=== PATIENT | female | born 1950 | race Caucasian/White ===

== ENCOUNTER 2021-04-23 07:50 | Observation (INO) ==
--- NOTE | 2021-03-25 13:41 | PAT Medication Instructions ---
Medication Instructions Date of Service March 25, 2021 Home Medications amlodipine [Norvasc] 10 mg PO PM aspirin [Aspir-81] 81 mg PO PM bupropion HCl [Wellbutrin XL] 300 mg PO PM celecoxib [Celebrex] 200 mg PO DAILY PRN ibuprofen 200 mg PO Q6H PRN magnesium 250 mg PO PM omeprazole 40 mg PO DAILY PRN rosuvastatin 40 mg PO 3XWK venlafaxine 75 mg PO PM Continue as directed rosuvastatin 40 mg PO 3XWK ASK your surgeon for instructions celecoxib [Celebrex] 200 mg PO DAILY PRN ibuprofen 200 mg PO Q6H PRN Take morning of surgery With a small sip of water, OTHERWISE NOTHING TO EAT OR DRINK AFTER MIDNIGHT: omeprazole 40 mg PO DAILY PRN (if needed) Take evening before surgery amlodipine [Norvasc] 10 mg PO PM aspirin [Aspir-81] 81 mg PO PM (continue as normal unless told otherwise by surgeon) bupropion HCl [Wellbutrin XL] 300 mg PO PM magnesium 250 mg PO PM omeprazole 40 mg PO DAILY PRN (if needed) venlafaxine 75 mg PO PM Other Notes If you have any questions please call us at [phone] or [phone] or [phone] or [phone]
--- NOTE | 2021-03-30 14:28 | Anesthesiology Consultation ---
Date of Service March 30, 2021 Assessment & Plan (1) Encounter for pre-operative examination: - COVID screening: Per assessment on 03/30: Travel screen- visited daughter in [place] (returned 03/28). No further travel planned prior to surgery. No known [place] VID-19 positive contacts or current COVID-19 related symptoms. Patient fully vaccinated. Surgeon arranging preop COVID testing. Awaiting results. - ASA instructions: to continue perioperatively unless told otherwise by surgeon/prescriber - PCP office visit (01/19/21): "Here for CPE.. No fever, chills, chest pain, shortness of breath, headache, nausea, vomit, diarrhea, constipation or vision changes." Continued on same regimen for chronic Chart Review Chart Review: Acceptable Risk for Surgery and Patient seen in Pre Admission Testing Teaching & Discussion Pre-Anesthesia Teaching/Discussion Notes: Instructed NPO after midnight before surgery,except medications with 15 cc of water. Medication instructions provided according to the PAT guidelines. History Surgery Operation Date: 04/23/21 07:00 Proposed Procedures p Left Total Knee Arthroplasty - Jesus Haji, Height/Weight Height: 5 ft 10 in Weight: 113.7 kg Allergies Allergy/AdvReac Type Severity Reaction Status Date / Time Sulfa (Sulfonamide Allergy Intermediate Mouth/throat Verified 03/29/21 15:59 Antibiotics) ulceration x weeks tetracycline Allergy Intermediate Mouth/throat Verified 03/29/21 15:59 ulceration topiramate Allergy Unknown Unknown Verified 03/29/21 15:59 phenobarbital AdvReac Mild Dizziness, Verified 03/29/21 15:59 nausea Medications Home Medications Medication Instructions Recorded Confirmed Last Taken amlodipine [Norvasc] 10 mg PO PM 03/18/21 03/18/21 Unknown aspirin [Aspir-81] 81 mg PO PM 03/18/21 03/18/21 Unknown bupropion HCl [Wellbutrin XL] 300 mg PO PM 03/18/21 03/18/21 Unknown celecoxib [Celebrex] 200 mg PO DAILY PRN 03/18/21 03/18/21 Unknown ibuprofen 200 mg PO Q6H PRN 03/18/21 03/18/21 Unknown magnesium 250 mg PO PM 03/18/21 03/18/21 Unknown omeprazole 40 mg PO DAILY PRN 03/18/21 03/18/21 Unknown rosuvastatin 40 mg PO 3XWK 03/18/21 03/18/21 Unknown venlafaxine 75 mg PO PM 03/18/21 03/18/21 Unknown Past Medical History Medical History Breast cancer 8 yrs ago s/p right lumpectomy, radiation Carotid artery disease HUSSAIN < 50% stenosis, LICA 50-69% stenosis per 07/2017 carotid duplex- was d/c'd by cardio d/t long-term stability in carotid disease per pt Depression GERD (gastroesophageal reflux disease) controlled Hyperlipidemia Hypertension Medication reaction Sensitive to medications > Per patient, "meds have to start at lower doses than average person" Migraine Obesity Osteoarthritis Sleep apnea No longer using CPAP since 87 lbs weight loss (no formal retesting but snoring/witnessed apnea events have resolved) Exercise / Class Metabolic Activity II 4-5 Yardwork/Stairs/Walk up hill (one flight of stairs (no chest pain, no sob)) Past Family History Family History Brother Diabetes Grandmother Colon cancer Past Surgical History Surgical History History of arthroscopy Right knee History of colonoscopy History of esophagogastroduodenoscopy (EGD) History of hysterectomy History of tonsillectomy History of tooth extraction History of total knee replacement Right Hx of lumpectomy Right Hx of oral surgery Gum [place] teeth extracted Past Anesthesia History No Family Hx of Anesthesia Complications and Other ("Fiesty" with anesthesia emergence) History of PONV No Hx of PONV and No Hx of Motion Sickness Social History Smoking Status: Former smoker Do You Dip or Chew Tobacco: No Smoking End Date: Quit 1987 Hx Alcohol Use: Yes Alcohol type: beer and wine alcohol intake frequency: a few times a week Hx Substance Use: No substance use type: does not use Review of Systems Patient denies chest pain, shortness of breath, dyspnea on exertion, fever, chills, cough, wheezing, palpitations. Physical Exam Vital Signs VITALS BP 130/79 P 57 TEMP SP02 97%RA RESP 16 PHYSICAL Full cervical extension range of motion. Full TMJ range of motion. TMD 4 finger breaths Mallampati Score 3 Dentition: missing molars, + implant (right upper side), several crowns Lungs: clear throughout to auscultation Cardiac: regular rate and rhythm, no murmurs noted Spine: normal Carotid arteries: negative bruit Extremities: no edema Testing Laboratory Results 03/30/21 14:52 03/30/21 14:52 PT 10.0 Seconds (9.0-12.0) 03/30/21 14:52 INR 1.0 (0.9-1.1) 03/30/21 14:52 APTT 24.2 Seconds (21.0-31.0) 03/30/21 14:52 Blood Type A Positive 03/30/21 14:52 Antibody Screen NEGATIVE 03/30/21 14:52 Electrocardiogram Date: 03/30/21 SB at 51bpm. Otherwise normal ECG. No significant change compared to 12/24/14 per supervisor net making review. Chest X-Ray Date: 03/30/21 Findings: + NAD Other Testing Carotid duplex (07/26/17): The right vertebral artery demonstrates antegrade flow. The left vertebral artery demonstrates antegrade flow. Right carotid art nelson duplex examination indicates evidence of a less than 50% stenosis of the internal carotid artery. Left carotid artery duplex examination indicates evidence of 50-69% stenosis of the internal carotid artery.
[2021-03-30 15:20] LABS: Basophils # (auto) 0.03 K/uL (0-0.2); Basophils % (auto) 0.5 %; Eosinophils # (auto) 0.08 K/uL (0-0.5); Eosinophils % (auto) 1.3 %; Hematocrit (blood only) 41.7 % (37-47); Hemoglobin 13.8 g/dL (12.0-16.0); Immature Granulocytes # (auto) 0.01 K/uL (0.00-0.02); Immature Granulocytes % (auto) 0.2 %; Mean Corpuscular Hemoglobin 31.7 pg (25-34); Mean Corpuscular Hgb Conc 33.1 g/dL (32-36); Mean Corpuscular Volume 95.6 fL (80-100); Mean Platelet Volume 9.8 fL (7.4-10.4); Monocytes # (auto) 0.48 K/uL (0.11-0.59); Monocytes % (auto) 7.9 %; Neutrophils # (auto) 3.31 K/uL (1.4-6.5); Neutrophils % (auto) 54.1 %; Platelet Count 339 K/uL (130-400); RDW Coefficient of Variation 13.9 % (11.5-14.5); RDW Standard Deviation 48.6 fL (36.4-46.3); Red Blood Count 4.36 M/uL (4.2-5.4); White Blood Count 6.11 K/uL (4.8-10.8)
[2021-03-30 15:30] LABS: BUN Creatinine Ratio 16.7 (10-20); Calcium 9.1 mg/dl (8.5-10.1); Est GFR (African American) 106.6
--- NOTE | 2021-03-30 15:31 | XRay Report ---
XR chest Pre-admission PA/Lat HISTORY: 70 years-old Female pat chronic degenerative joint disease COMPARISON: Chest and rib radiographs 03/13/2019 TECHNIQUE: PA and lateral views of the chest FINDINGS: Cardiomediastinal and hilar silhouettes are within normal limits. No pneumothorax, pleural effusion, airspace consolidation or overt pulmonary edema. Bones of the chest appear grossly intact. IMPRESSION: No acute process. ACT 112: Negative or not required by law. The above report was generated using voice recognition software. It may contain grammatical, syntax o r spelling errors. Electronically signed by: Keith Vogel M.D. 03/30/2021 3:30 PM
[2021-03-30 15:41] LABS: Partial Thromboplastin Ratio 0.9; Partial Thromboplastin Time 24.2 Seconds (21.0-31.0)
--- NOTE | 2021-03-31 22:01 | Electrocardiogram Report ---
Test Reason : Blood Pressure : / mmHG Vent. Rate : 051 BPM Atrial Rate : 051 BPM P-R Int : 176 ms QRS Dur : 100 ms QT Int : 430 ms P-R-T Axes : 074 063 074 degrees QTc Int : 396 ms Sinus bradycardia Otherwise normal ECG When compared with ECG of 24-DEC-2014 11:01, No significant change was found Confirmed by Ivan Luna ([id number]) on 03/31/2021 10:01:02 PM Referred By: Jesus Haji Confirmed By:Ivan Luna
--- NOTE | 2021-04-22 07:07 | History & Physical Report ---
Date of Service April 22, 2021 Assessment & Plan (1) Osteoarthritis of left knee: We will proceed with a left total knee arthroplasty. Postoperatively she will be started on aspirin for DVT prophylaxis and kept overnight in the hospital for postoperative medical management. She plans to use [facility] upon discharge. History of Present Illness Chief Complaint: Osteoarthritis of the left knee. Primary Care Provider: Willian Perez MD Bhakti is a pleasant 70-year-old female who I did a right knee replacement on 2014. She is done very well with that. Unfortunate she has been doing with left knee pain. She has recently lost about 80 pounds. I have been giving her serial injections of her left knee. The injections has been helping until recently. Unfortunate she is having more more pain in her left knee. She has decided to proceed with a left total knee arthroplasty.. Allergies Allergy/AdvReac Type Severity Reaction Status Date / Time Sulfa (Sulfonamide Allergy Intermediate Mouth/throat Verified 03/29/21 15:59 Antibiotics) ulceration x weeks tetracycline Allergy Intermediate Mouth/throat Verified 03/29/21 15:59 ulceration topiramate Allergy Unknown Unknown Verified 03/29/21 15:59 phenobarbital AdvReac Mild Dizziness, Verified 03/29/21 15:59 nausea Home Medications Medication Instructions Recorded Confirmed Type amlodipine [Norvasc] 10 mg PO PM 03/18/21 03/18/21 History aspirin [Aspir-81] 81 mg PO PM 03/18/21 03/18/21 History bupropion HCl [Wellbutrin XL] 300 mg PO PM 03/18/21 03/18/21 History celecoxib [Celebrex] 200 mg PO DAILY PRN 03/18/21 03/18/21 History ibuprofen 200 mg PO Q6H PRN 03/18/21 03/18/21 History magnesium 250 mg PO PM 03/18/21 03/18/21 History omeprazole 40 mg PO DAILY PRN 03/18/21 03/18/21 History rosuvastatin 40 mg PO 3XWK 03/18/21 03/18/21 History venlafaxine 75 mg PO PM 03/18/21 03/18/21 History Past Med/Surg History Medical History Breast cancer 8 yrs ago s/p right lumpectomy, radiation Carotid artery disease HUSSAIN < 50% stenosis, LICA 50-69% stenosis per 07/2017 carotid duplex- was d/c'd by cardio d/t long-term stability in carotid disease per pt Depression GERD (gastroesophageal reflux disease) controlled Hyperlipidemia Hypertension Medication reaction Sensitive to medications > Per patient, "meds have to start at lower doses than average person" Migraine Obesity Osteoarthritis Sleep apnea No longer using CPAP since 87 lbs weight loss (no formal retesting but snorin g/witnessed apnea events have resolved) Surgical History History of arthroscopy Right knee History of colonoscopy History of esophagogastroduodenoscopy (EGD) History of hysterectomy History of tonsillectomy History of tooth extraction History of total knee replacement Right Hx of lumpectomy Right Hx of oral surgery Gum [place] teeth extracted Family History Brother Diabetes Grandmother Colon cancer Social History Smoking Status: Former smoker Second Hand Exposure: No; Hx Alcohol Use: Yes Alcohol type: beer and wine Hx Substance Use: No Preferred Language: Czech Communication Ability: Effective Procurement Officer Required: No Beliefs That Will Affect Care: None Current Living Situation: Spouse Feels Safe at Home: Yes Assistive Devices: Glasses Review of Systems All systems reviewed & are unremarkable except as noted in HPI & below. Physical Exam On physical examination of the left knee, she has range of motion of 0 to 120 degrees. She has no instability. She has pain of the distal medial femoral condyles and over the medial joint line.. Constitutional WD/WN, vitals as above Eyes PERRL, conjunctivae normal, anicteric sclerae ENMT external ear and nose normal, oropharynx normal Neck trachea midline, no thyromegaly Respiratory normal respiratory effort Cardiovascular RRR, no murmur, no edema Gastrointestinal (Abdomen) normal bowel sounds, soft, nontender, no hepatosplenomegaly Psychiatric A+Ox3, euthymic affect Results & Data Results & Data Laboratory Results . Diagnostic Findings X-rays of the left knee do show advanced osteoarthritis with joint space narrowing, osteophyte formation, and [id number] articulation.. PG Care Time/CCT Total # of Minutes Spent Total Time Spent with Patient: Total time spent is greater than 50% in coordination of care (as documented) at patient's floor/unit and/or counseling patient: Coding Level of Care Code None Diagnoses Osteoarthritis of left knee M17.12
[~2021-04-23 07:50] MED LIST: ACETAMINOPHEN 500 MG TAB PO SCH; BUPIVACAINE 0.25% 30 ML VIAL ONE; BUPIVACAINE 0.5 % 5 MG/1 ML PF 10ML VIAL ONE; FAMOTIDINE 20 MG TAB PO SCH; GABAPENTIN 300 MG CAP PO SCH; LR 500ML BOLUS, THEN 15ML/HR IV SCH; LR 60ML/HR IV SCH; ROPIVACAINE 0.5% HCL/PF 150 MG, BUPIVACAINE 0.75% MPF 20 ML, EPINEPHrine 30MG/30ML (OR ... INSTIL SCH; TRANEXAMIC ACID 1,000 MG **IV Intra-op IV SCH; TRANEXAMIC ACID 1,000 MG **IV Pre-op IV SCH; dexAMETHasone 4 MG TAB PO SCH
--- NOTE | 2021-04-23 08:44 | History & Physical Bridge Note ---
Date of Service April 23, 2021 History & Physical Bridge Note I have examined the patient, reviewed the History & Physical and in the interval since the performance of the History & Physical I have noted the following changes of clinical significance: no changes noted
[2021-04-23] MEDS ORDERED: ATROPINE SULFATE 0.1 MG/ML 10ML SYR IV PRN (10:09)
[2021-04-23] MEDS ORDERED: ONDANSETRON INJ 2 MG/ML 2 ML VIAL IV PRN ×2 (10:09→14:33)
[2021-04-23] MEDS ORDERED: ePHEDrine sulfate 50 MG/ML AMP IV PRN (10:09)
[2021-04-23] MEDS ORDERED: fentaNYL citrate 100 MCG/2 ML VIAL IV PRN (10:09)
[2021-04-23] MEDS ORDERED: MIDAZOLAM HCL 1 MG/ML 2ML VIAL ONE ×2 (10:17)
[2021-04-23] MEDS ORDERED: fentaNYL citrate 100 MCG/2 ML VIAL ONE (10:31)
[2021-04-23] MEDS ORDERED: ORTHO JOINT ANESTHETIC ONE (11:25)
[2021-04-23] MEDS ORDERED: PROPOFOL IV EMULSION 10 MG/ML 20 ML VIAL IV ONE (11:51)
[2021-04-23] MEDS ORDERED: ONDANSETRON INJ 2 MG/ML 2 ML VIAL ONE (12:42)
--- NOTE | 2021-04-23 12:43 | Operative Report ---
PG Post Operative Report Pre & Post Diagnosis Operation Date: 04/23/21 10:20 Pre-Op Diagnosis: Left Knee Degeneratve Joint Disease Post-Op Diagnosis: Left Knee Degeneratve Joint Disease I identified the patient and participated in the time-out.: Yes Procedure Operation Date: 04/23/21 10:20 Actual Procedures p Left Total Knee Arthroplasty(Left) - Jesus Haji DO Surgeon Jesus Haji DO Directory Operator Jesus Lyn PAC Estimated Blood Loss 10 Findings Consistent with Post-Op Diagnosis Specimens Left femoral and tibial bone Complications none Disposition Disposition: Recovery Room Indications Bhakti is a pleasant 70-year-old female has been dealing with chronic increasing left knee pain. X-rays and clinical examination have been diagnostic for advanced osteoarthritis of the left knee. After failing conservative treatment, she elected proceed with a left total knee arthroplasty. Description of Procedure Implants used: I used a Michael Persona total knee arthroplasty system with a size 10 standard femur, F tibia, 32 patella, and a size 10 medial congruent polyethylene bearing. All components were cemented in place with Simplex HV cement. Bhakti arrived [facility] for the above procedure. She was seen in the preoperative holding area and the operative extremity was identified and signed. She was given a preoperative antibiotic, TXA, a spinal anesthetic and an adductor nerve block. She was taken back to the operating room and laid on the table in supine position. She was given basic sedation. The operative knee was then prepped and draped in sterile fashion. A timeout was done, and the patient and the operative extremity was properly identified. A midline incision was made directly over the patella. Dissection was taken down to the extensor mechanism. A subvastus arthrotomy was used. The medial retinaculum was released and the fat pad was mostly excised. The knee was flexed and the ACL, PCL, and meniscus were removed. A drill was sent down the center of the femoral canal followed by an intramedullary bea. Off that bea a distal femoral cutting block was placed. 9 mm was resected off the distal femur at 5 of valgus. A posterior referencing AP sizing guide was then placed on the distal femur. The femur measured to be a size 10. 2 drill holes were placed in 3 of external rotation. A 4-in-1 cutting block was then impacted into place. Anterior, posterior, and chamfer cuts were then made. The proximal tibia was then exposed. An external tibial alignment guide was placed. A tibial cut guide was then anchored in place and the proximal tibia was then resected. The posterior aspect of the knee was then opened up and any additional meniscus fragments and osteophytes were removed. The tibia measured to be a size F. The tibial plate was then placed in the appropriate rotation and the tibia was drilled and punched. Trial components were then placed. I used a size 10 medial congruent polyethylene insert. The knee was brought through a full range of motion and felt to be stable. The peg holes for the femoral component were then drilled. The patella was then everted and 9 mm was resected off the posterior aspect of the patella. The patella measured to be a size 32. 3 peg holes were then drilled. A trial patella was placed. The knee was once again brought through a full range of motion and felt to be stable. Trial components were then removed. The surrounding soft tissues were injected with 100 cc of an orthopedic pain control cocktail. All components were then cemented into place with Simplex HV cement. The final polyethylene insert was then snapped into place. Once cement was dry the tourniquet was deflated. Hemostasis was obtained. A dilute betadyne lavage was then done for 3 minutes. The joint was then irrigated with normal saline solution. The subvastus arthrotomy was then closed with #1 Vicryl suture. The skin was closed with 2-0 Vicryl, 3-0V lock suture, and oj. A soft compressive dressing was placed. She was then transferred to a hospital bed and taken to the postanesthesia care unit in stable condition. She tolerated the procedure well. Jesus Lyn PA-C, was present for the entire procedure. He was critical for patient positioning, prepping, draping, retraction exposure, wound closure and application of sterile dressing. I attest to the content of the Intraoperative Record and any orders documented therein. Any exceptions are noted below.
--- NOTE | 2021-04-23 13:43 | XRay Report ---
TWO VIEWS LEFT KNEE CLINICAL HISTORY: Postoperative examination. FINDINGS: AP and crosstable lateral portable views of the left knee are obtained. A left knee arthrop lasty is in near anatomic alignment. There has been undersurface remodeling of the patella. No acute fracture is seen. There are expected postoperative changes around the knee including skin clips, soft tissue edema, and subcutaneous gas. IMPRESSION: Expected postoperative changes status post left knee arthroplasty. No acute fracture is s een. ACT 112: Negative or not required by law. Electronically signed by: David Gaming M.D. 04/23/2021 1:42 PM
[2021-04-23] MEDS ORDERED: NALOXONE HCL 0.4 MG/1 ML VIAL/CARP IV PRN (14:33)
[2021-04-23] MEDS ORDERED: HYDROmorphone INJ 0.5 MG/0.5 ML SYR IV PRN (14:33)
[2021-04-23] MEDS ORDERED: MAGNESIUM HYDROXIDE SUSP 30 ML UDC PO PRN (14:33)
[2021-04-23] MEDS ORDERED: oxyCODONE HCL IR 5 MG TAB (IMMEDIATE RELEASE) PO PRN (14:33)
[2021-04-23] MEDS ORDERED: METOCLOPRAMIDE HCL INJ 5 MG/ML 2 ML VIAL IV PRN (14:33)
[2021-04-23] MEDS ORDERED: bisacodyL 10 MG SUPP PR PRN (14:33)
[2021-04-23] MEDS: SODIUM CHLORIDE 0.9% 1000ML 1,000 ML IV SCH (14:37)
[2021-04-23] MEDS: ACETAMINOPHEN 500 MG TAB PO SCH ×2 (15:01→20:49)
--- NOTE | 2021-04-23 15:18 | Anesthesiology Progress Note ---
Date of Service April 23, 2021 Anesthesia Post Procedure Vital Signs Vital Signs: Temp Pulse Pulse Resp BP Pulse Ox 04/23/21 14:57 36.6 C 66 18 134/83 95 04/23/21 14:15 36.4 C L 66 18 126/72 95 04/23/21 14:00 59 L 20 127/90 95 04/23/21 13:50 36.0 C L 67 16 151/79 H 96 04/23/21 13:40 70 18 152/69 H 95 04/23/21 13:30 72 14 158/87 H 95 04/23/21 13:20 66 14 146/84 H 100 04/23/21 13:10 36.8 C 72 21 140/77 100 04/23/21 09:39 36.9 C 64 18 138/74 98 04/23/21 08:45 37 C 62 18 131/67 95 Pain Intensity Left Knee: Pain Intensity: 1 Transfer of Care Handoff Completed per policy Notes Mental Status: alert / awake / arousable and participated in evaluation Patient Amnestic to Procedure: Yes Nausea / Vomiting: adequately controlled Pain: adequately controlled Airway Patency, RR, SpO2: stable & adequate BP & HR: stable & adequate Hydration State: stable & adequate Neuraxial Anesthesia: was administered and sensory block is resolving Anesthetic Complications: no major complications apparent and Pt Satisfied with anesthetic care
[2021-04-23] MEDS: KETOROLAC 30 MG/ML VIAL IV SCH ×2 (15:56→20:50)
[2021-04-23] MEDS ORDERED: ROSUVASTATIN CALCIUM 20 MG TAB PO SCH (16:00)
[2021-04-23] MEDS: ceFAZolin 2000MG 2,000 MG/15 ML SYR IV SCH (20:48)
[2021-04-23] MEDS: DOCUSATE SODIUM 100 MG CAP PO SCH (20:48)
[2021-04-23] MEDS: ASPIRIN 81 MG ECTAB PO SCH (20:50)
[2021-04-23] MEDS ORDERED: amLODIPine BESYLATE 5 MG TAB PO SCH (21:00)
[2021-04-23] MEDS ORDERED: VENLAFAXINE HCL XR 75 MG CAPXR PO SCH (21:00)
[2021-04-23] MEDS ORDERED: SENNA 8.6 MG TAB PO SCH (21:00)
[2021-04-23] MEDS ORDERED: buPROPion XL 300 MG TABCR PO SCH (21:00)
[2021-04-24] MEDS: SODIUM CHLORIDE 0.9% 1000ML 1,000 ML IV SCH (01:01)
[2021-04-24] MEDS: KETOROLAC 30 MG/ML VIAL IV SCH ×2 (05:05→09:16)
[2021-04-24] MEDS: ceFAZolin 2000MG 2,000 MG/15 ML SYR IV SCH (05:05)
[2021-04-24] MEDS: ACETAMINOPHEN 500 MG TAB PO SCH (05:05)
[2021-04-24] MEDS: ASPIRIN 81 MG ECTAB PO SCH (07:36)
[2021-04-24] MEDS: DOCUSATE SODIUM 100 MG CAP PO SCH (07:37)
[2021-04-24] MEDS ORDERED: dexAMETHasone 4 MG TAB PO SCH (08:00)
--- NOTE | 2021-04-24 08:08 | Orthopedic Progress Note ---
Date of Service April 24, 2021 Assessment & Plan (1) Status post left knee replacement: Overall she is doing very well. She is not having much pain in the left knee. She will be seen by physical therapy today for ambulation and range of motion exercises. She is on aspirin for DVT prophylaxis. She can be discharged home later today. She will follow-up with orthopedics in 2 weeks. Kendrick Ya was seen and examined at bedside this morning. Overall she is doing very well. She is not having much pain in the left knee. She has been up and ambulating to the bathroom. She has no complaints.. Review of Systems All systems reviewed & are unremarkable except as noted in HPI & below. Physical Exam On physical examination of the left knee, the dressing is mostly clean and dry. There is a little bleeding at the top of the dressing. She has active dorsiflexion plantarflexion of her left ankle. Sensation is intact throughout.. Results & Data Results & Data Laboratory Results . Diagnostic Findings Postoperative x-rays of the left knee show the prosthesis to be in anatomic alignment without any evidence of fracture, dislocation, or loosening. PG Care Time/CCT Total # of Minutes Spent Total Time Spent with Patient: Total time spent is greater than 50% in coordination of care (as documented) at patient's floor/unit and/or counseling patient: Coding Level of Care Code 20220 Post Operative Follow-Up Diagnoses Status post left knee replacement Z96.652
--- NOTE | 2021-04-24 08:08 | Discharge Summary ---
Date of Service April 24, 2021 Admission HPI (Per Admitting) Bhakti is a pleasant 70-year-old female who I did a right knee replacement on 2014. She is done very well with that. Unfortunate she has been doing with left knee pain. She has recently lost about 80 pounds. I have been giving her serial injections of her left knee. The injections has been helping until recently. Unfortunate she is having more more pain in her left knee. She has decided to proceed with a left total knee arthroplasty.. Admission Exam (Per Admitting) On physical examination of the left knee, she has range of motion of 0 to 120 degrees. She has no instability. She has pain of the distal medial femoral condyles and over the medial joint line.. Principal Diagnosis Same as "Discharge Diagnosis" noted below under Discharge Instructions. Discharge Exam On physical examination of the left knee, the dressing is mostly clean and dry. There is a little bleeding at the top of the dressing. She has active dorsiflexion plantarflexion of her left ankle. Sensation is intact throughout.. Discharge Data Procedures Performed Operation Date: 04/23/21 10:20 Actual Procedures p Left Total Knee Arthroplasty(Left) - Jesus Haji DO Ordered Studies 04/23/21 05:00 US - OR guided needle placemen Routine Hospital Course (1) Status post left knee replacement: On April 23, 2021 Bhakit arrived at [facility] and underwent a left knee replacement without complication. She had a spinal anesthetic. Postoperatively she was started on aspirin for DVT prophylaxis and transferred to the general orthopedic floors. Her hospital course was uneventful. On postop day #1 her vital signs were stable and her pain was well controlled. She was able to participate well with physical therapy doing ambulation and range of motion exercises. She was then discharged home. She will follow-up with orthopedics in 2 weeks. PG Care Time/CCT Total # of Minutes Spent Total Time Spent with Patient: Total time spent is greater than 50% in coordination of care (as documented) at patient's floor/unit and/or counseling patient: Discharge Plan Discharge Items Patient Disposition: Home - Home Health Services Reason For Visit: DJD Knee Left Discharge Diagnosis: Left knee replacement Activity: As commented below Non-emergency contact: Surgeon Call non-emergency contact if: your wound has increased redness and your wound has increased drainage Follow-up/Referrals: Willian Perez MD [Primary Care Provider] - Diet: Regular Addtl Attending Provider Instructions: Activity and Therapy Recommendations: * If you are using [facility] then therapy will be provided at your home until they feel you have accomplished all of your goals. * If you are using [facility] then Physical Therapy will be provided until they feel you are ready to start Outpatient Physical Therapy. * If you are not using home therapy then Outpatient Physical Therapy should start about 3-5 days from your day of surgery. Therapy will last about 6-10 weeks * It is important not to put a pillow under your knee when you are relaxing or sleeping. It is just as important to make sure you are getting your knee perfectly straight as it is to regain your knee bend. * You were shown a series of exercises in the hospital. Do these exercises three times each day including the exercises you were shown in physical therapy. * Get up and walk several times each day. For the first four weeks, try not to stand or walk for more than one hour at a time. If you do stand or walk for more than one hour, you will not hurt anything, but your leg will likely swell. * As you feel comfortable, you may change from the walker or crutches to a cane and then to independent walking. Medications: * Narcotic You will likely be sent home from the hospital with a prescription for the narcotic pain medication that worked best throughout your stay. * Aspirin Most patients will be required to take Aspirin 81mg twice a day for 6 weeks after surgery. This is obtained [id number] and a prescription is not necessary. * Other medications may be prescribed for specific circumstances. If you have any questions, please call the office at . * Resume previous home medications unless otherwise instructed TEDs/Elastic Stockings: The white elastic stockings help limit swelling and prevent blood clots from forming in your legs.~ The more you wear them, the more they work. Wear them for six weeks. Dressing Care: The dressing can be changed after physical therapy on postop day #1. Daily dry dressing changes for a few days, especially if the incision is still draining some. If the incision is not draining then you may leave the oj open to air. If there is a little bit of drainage or if the oj are getting stuck on your clothing then cover the incision with a dry dressing. The oj will be removed at your 2 week follow-up appointment. Showering: You may shower 5 days from the day of surgery as long as the incision is no long er draining. You may shower with the oj exposed. Let soapy water run over the oj and pat them dry. Do not scrub or soak the incision. Things To Watch For: * Drainage from the incision site that occurs more than one week after your surgery. * Increased redness at the incision site. * Fever above 102 degrees Fahrenheit. * Unusual chest pain or shortness of breath. * Call [facility] at with any of the above problems Follow-Up Visit: Follow-up with Dr. Haji's PA (Jesus Lyn) 2-3 weeks after your day of surgery. He will remove your oj and answer any questions. If you have any additional questions or concerns, Dr Haji is usually in the office at the same time and will be available An appointment was probably scheduled when you signed-up for surgery in the office. If you have any questions call Office Instructions: More detailed instructions as well as Frequently Asked Questions were provided in a folder by our office when you signed-up for surgery. Please review these instructions when you get home. If you have any further questions or concerns, please feel free to call the office at [phone] Pending Studies at Discharge: No Stand-Alone Forms: [facility] [email or web address], Smoking Cessation Medications and DC Order Prescriptions: New hydrocodone-acetaminophen 5-325 mg tablet 1 tab PO Q6H PRN (Reason: pain) Qty: 40 RF: 0 Continued venlafaxine 75 mg Tablet 75 mg PO PM RF: 0 omeprazole 40 mg Capsule,Delayed Release(Dr/Ec) 40 mg PO DAILY PRN (Reason: Acid Reflux) RF: 0 amlodipine [Norvasc] 10 mg Tablet 10 mg PO PM RF: 0 magnesium 250 mg Tablet 250 mg PO PM RF: 0 rosuvastatin 40 mg Tablet 40 mg PO 3XWK RF: 0 bupropion HCl [Wellbutrin XL] 300 mg Tablet Extended Release 24 Hr 300 mg PO PM RF: 0 celecoxib [Celebrex] 200 mg Capsule 200 mg PO DAILY PRN (Reason: Pain) RF: 0 Changed aspirin 81 mg Tablet,Delayed Release (Dr/Ec) 81 mg PO BID 42 Days Qty: 0 RF: 0 Discontinued ibuprofen 200 mg Capsule 200 mg PO Q6H PRN (Reason: Pain) RF: 0 Discharge Orders: Discharge Order (Routine); Ordered 04/24/21 Ordered By: Jesus Haji Admission Data Admit Date/Time: 04/23/21 13:13 Attending Provider: Jesus Haji Admit Provider: Jesus Haji Primary Care Provider: Willian Perez
[2021-04-24] MEDS ORDERED: MULTIVITAMIN TAB PO SCH (09:00)
== END 2021-04-24 13:28 | disposition home health service (06) ==
LOC: ASU 07:50 → 3E 07:50